=== PATIENT | female | born 1985 | race Caucasian/White ===

== ENCOUNTER 2016-11-17 21:56 | Emergency (ER) | payer OTHER ==
[~2016-11-17] VITALS: Ht 157.5 cm; Wt 81.6 kg
[2016-11-17 22:26] VITALS: BP_SYST 159
--- NOTE | 2016-11-17 22:30 | NUR ---
Pt states she has R breast pain 6/10 with redness and fever for the past four days. Pt took ibuprofen about 2 hours ago. Will continue to monitor. No other injuries or complaints mentioned/noted. No distress noted.
--- NOTE | 2016-11-17 22:30 | NUR ---
Patient to ER bed 2 to gown for evaluation. Side rails up. Report given to Delvin GARCIA.
--- NOTE | 2016-11-17 22:40 | NUR ---
ER Dr. Olvera at bedside examining patient.
[2016-11-17] MEDS ORDERED: CEPHALEXIN 500 MG CAPSULE PO ONE (23:00)
[2016-11-17 23:10] VITALS: BP_SYST 117
--- NOTE | 2016-11-17 23:10 | NUR ---
Patient given written and verbal discharge instructions and verbalizes understanding. ER MD discussed with patient the results and treatment provided. Patient in stable condition. ID arm band removed. Rx of keflex given. Patient educated on pain management and to follow up with PMD. Pain Scale 0/10. Opportunity for questions provided and answered.
--- NOTE | 2016-11-17 23:30 | NUR ---
Note hannah in ED - 11/18/16 at 0413 by MARQUEZ [facility] up. Report given to Delvin GARCIA.
== END 2016-11-17 23:10 | disposition home or self-care (01) ==
LOC: SED 21:56
DX: N61.0 Mastitis without abscess (principal); E11.9 Type 2 diabetes mellitus without complications
CPT/HCPCS: 99283

== ENCOUNTER 2017-07-03 02:38 | Emergency (ER) | payer OTHER ==
[~2017-07-03] VITALS: Ht 157.5 cm; Wt 79.4 kg
[2017-07-03 02:42] VITALS: BP_SYST 117
--- NOTE | 2017-07-03 02:45 | NUR ---
Patient to ER bed 8 to gown for evaluation. Side rails up. Report given to Nancy GARCIA.
--- NOTE | 2017-07-03 02:50 | NUR ---
Patient to ER C/O LUQ abdominal pain 05/23 with cramping and severe nausea, no vomiting since 3 pm yesterday. Patient denies vomiting/diarrhea/constipation. AAOx4, unlabored breathing, no signs of acute distress.
--- NOTE | 2017-07-03 02:57 | NUR ---
BOB MCKNIGHT Kwaw at bedside evaluating the patient
[2017-07-03] MEDS ORDERED: NACL 0.9% 1,000 ML IV ONE ×2 (03:13→04:15)
--- NOTE | 2017-07-03 03:20 | NUR ---
# 20 gauge angiocath placed to RIGHT WRIST. Use of asceptic technique. Opsite placed over site. Blood return noted. Blood for lab drawn from site. Flushed with 10 cc of normal saline. No evidence of infiltration noted. Patient tolerated well.
[2017-07-03 03:28] LABS: BILIRUBIN,URINE NEGATIVE (NEGATIVE); BLOOD, URINE NEGATIVE (NEGATIVE); CLARITY/URINE CLEAR (CLEAR); COLOR,URINE YELLOW (YELLOW); GLUCOSE,URINE NEGATIVE (NEGATIVE); KETONES,URINE 1+ (NEGATIVE); LEUKOCYTE ESTERASE ,URINE NEGATIVE (NEGATIVE); NITRITE, URINE NEGATIVE (NEGATIVE); PH,URINE 5.5 (5.0-8.0); PROTEIN URINE NEGATIVE (NEGATIVE); UROBILINOGEN,URINE 0.2 (0.2-1.0)
--- NOTE | 2017-07-03 03:32 | NUR ---
Patient C/O nausea. ER MD Esqueda aware. Received verbal order for Zofran 4mg IVP one dose now.
[2017-07-03] MEDS ORDERED: ONDANSETRON HCL 4 MG/2 ML VIAL IVP ONE (03:45)
[2017-07-03 03:52] LABS: CREATININE 0.68 mg/dL (0.55-1.30); POTASSIUM 3.8 mmol/L (3.5-5.1)
--- NOTE | 2017-07-03 03:55 | NUR ---
15 minutes after administration of zofran. No adverse reactions noted. Will continue to monitor.
[2017-07-03 04:01] LABS: BASOPHILS % (AUTO) 0.4 % (0.0-2.0); EOSINOPHILS # (AUTO) 0.1 K/uL (0.0-0.4); EOSINOPHILS % (AUTO) 2.2 % (0.0-4.0); HEMATOCRIT 39.8 % (36-48); HEMOGLOBIN 13.2 g/dL (12.0-16.0); LYMPHOCYTES # (AUTO) 0.5 K/uL (1.0-5.5); LYMPHOCYTES % (AUTO) 8.5 % (20.5-51.5); MEAN CORPUSCULAR HEMOGLOBIN 29 pg (27-31); MEAN CORPUSCULAR HGB CONC 33 % (32-36); MEAN CORPUSCULAR VOLUME 87 fL (79.0-98.0); MONOCYTES # (AUTO) 0.3 K/uL (0.0-1.0); MONOCYTES % (AUTO) 5.4 % (1.7-9.3); NEUTROPHILS # (AUTO) 5.1 K/uL (1.8-7.7); NEUTROPHILS % (AUTO) 83.2 % (40.0-70.0); PLATELET COUNT (AUTO) 223 K/uL (130-430); RED BLOOD CELL COUNT(AUTO) 4.57 MIL/uL (4.2-6.2); RED CELL DISTRIBUTION WIDTH 12.1 % (9.0-15.0)
[2017-07-03 04:03] LABS: ALBUMIN 3.4 g/dL (3.4-4.8); TOTAL BILIRUBIN 1.6 mg/dL (0.0-1.0)
--- NOTE | 2017-07-03 04:09 | NUR ---
Verbal order for NS 1000ml bolus once, received from ER MD Esqueda
[2017-07-03 05:15] VITALS: BP_SYST 121
--- NOTE | 2017-07-03 05:15 | NUR ---
Patient given written and verbal discharge instructions and verbalizes understanding. ER MD Esqueda discussed with patient the results and treatment provided. Patient in stable condition. ID arm band removed. IV catheter removed intact and dressing applied, no active bleeding. Patient educated on pain management and to follow up with PMD. Pain Scale 0/10. Opportunity for questions provided and answered.
== END 2017-07-03 05:15 | disposition home or self-care (01) ==
LOC: SED 02:38
DX: B34.9 Viral infection, unspecified (principal); E11.9 Type 2 diabetes mellitus without complications
CPT/HCPCS: 36415; 80053; 81003; 81025; 82962; 83690; 85025; 96361; 96374; 99285; J2405; J7030